=== PATIENT | male | born 1970 | race Caucasian/White ===

== ENCOUNTER 2020-01-17 14:54 | Outpatient (CLI) | payer BC ==
--- NOTE | 2020-01-17 16:11 | ULT ---
ULTRASOUND SOFT TISSUE CHEST WALL: 01/17/20 HISTORY: 49-year-old male with lump in the right breast wall. FINDINGS/IMPRESSION: Sonographic evaluation of the region of palpable concern in the right chest/breast is performed betwe en the 10-11 o'clock position, 2, 3, and 4 o'clock positions and behind the nipple. No sonographic ab normalities are identified. POS: [facility]
== END 2020-01-17 14:55 | disposition home or self-care (01) ==
LOC: BICULT 14:54
PROVIDERS: ATTEND Hospitalist
DX: R22.2 Localized swelling, mass and lump, trunk (principal)